=== PATIENT | female | born 1990 | race Caucasian/White ===

== ENCOUNTER 2023-06-11 19:19 | Observation (INO) | payer SELFPAY ==
[~2023-06-11] VITALS: Ht 144.8 cm; Wt 68.0 kg
[2023-06-11] MEDS ORDERED: PNV1TABL76 PO (19:38)
[2023-06-11] MEDS ORDERED: LACTATED RINGERS 1,000 ML IV SCH (20:00)
[2023-06-11] MEDS ORDERED: LACTATED RINGERS 500 ML IV NR (20:15)
[2023-06-11] MEDS ORDERED: LACTATED RINGERS 500ML 500 ML IV NR (20:15)
[2023-06-11] MEDS: ONDANSETRON HCL 4MG/2ML INJ IV PRN ×2 (20:24→20:27)
[2023-06-11] MEDS: ACETAMINOPHEN 325MG TABLET PO PRN ×2 (20:25→20:29)
[2023-06-11 20:29] VITALS: TEMP 98.5
== END 2023-06-11 21:50 | disposition home or self-care (01) ==
LOC: 8 EST LDRP 19:19
PROVIDERS: ADMIT Obstetrics & Gynecology; ATTEND Obstetrics & Gynecology
DX: O26.892 Other specified pregnancy related conditions, second trimester (principal); R10.30 Lower abdominal pain, unspecified; R11.0 Nausea; Z3A.21 21 weeks gestation of pregnancy
CPT/HCPCS: 59025; 96361; 96374; J2405; G0378 ×2; 99281; J7120